=== PATIENT | male | born 1995 | race Caucasian/White ===

== ENCOUNTER 2019-07-13 05:29 | Day surgery (SDC) | payer BC, OTHER ==
[~2019-07-13 05:29] MED LIST: CEFAZOLIN SODIUM 2 GM in DEXTROSE 5%-WATER 100 ML IV PRN
[2019-07-13 05:53] LABS: APPEARANCE,URINE CLEAR; BILIRUBIN,URINE NEGATIVE (NEGATIVE); COLOR,URINE YELLOW; GLUCOSE, URINE NEGATIVE (NEGATIVE); KETONES,URINE NEGATIVE (NEGATIVE); LEUKOCYTE ESTERASE,URINE NEGATIVE (NEGATIVE); NITRITE,URINE NEGATIVE (NEGATIVE); PROTEIN,URINE NEGATIVE (NEGATIVE)
[2019-07-13 05:57] LABS: HEMATOCRIT 50.6 % (37.9-51.0); HEMOGLOBIN 17.4 g/dL (13.5-17.0); MEAN CORPUSCULAR HEMOGLOBIN 30.7 pg (27.0-33.4); MEAN CORPUSCULAR HGB CONC 34.4 g/dL (32.0-36.0); MEAN CORPUSCULAR VOLUME 90 fl (80-97); PLATELET COUNT 231 10^3/uL (150-450); RED BLOOD COUNT 5.66 10^6/uL (4.35-5.55); RED CELL DISTRIBUTION WIDTH 13.4 % (11.5-14.0); WHITE BLOOD COUNT 6.6 10^3/uL (4.0-10.5)
[2019-07-13 06:17] LABS: ANION GAP 13 (5-19); BLOOD UREA NITROGEN 12 mg/dL (7-20); CALCIUM 9.3 mg/dL (8.4-10.2); CARBON DIOXIDE 24 mmol/L (22-30); CHLORIDE 103 mmol/L (98-107); GLUCOSE 94 mg/dL (75-110)
[2019-07-13] MEDS ORDERED: LIDOCAINE 2% INJ-PF (20 MG/ML) 10 ML AMPUL ONE (06:38)
[2019-07-13] MEDS ORDERED: FENTANYL CITRATE INJ/PF 100 MCG/2 ML AMPUL ONE (06:38)
[2019-07-13] MEDS ORDERED: MIDAZOLAM 2 MG/2 ML INJ ONE (06:38)
[2019-07-13] MEDS ORDERED: HYDROMORPHONE HCL INJ/PF 2 MG/ML AMPULE ONE (06:38)
[2019-07-13] MEDS ORDERED: KETOROLAC TROMETHAMINE 60 MG/2 ML SDV ONE (06:38)
[2019-07-13] MEDS ORDERED: ONDANSETRON HCL INJ/PF 4 MG/2 ML SDV ONE (06:38)
[2019-07-13] MEDS ORDERED: PROPOFOL INJ 200 MG/20 ML VIAL IV ONE (06:39)
--- NOTE | 2019-07-13 07:13 | RADIOLOGY REPORT (SQ) ---
EXAM DESCRIPTION: XR CHEST 1 VIEW COMPLETED DATE/TME: 07/13/2019 00:00 CLINICAL HISTORY: pre-op. Subtalar fusion. COMPARISON: None. FINDINGS: Single frontal view of the chest. Cardiomediastinal silhouette: Normal size and contour. Lungs: No consolidation, pneumothorax, or pleural effusion. Bones: No acute osseous abnormality. Upper abdomen: No abnormality identified. IMPRESSION: 1. No acute pulmonary process identified.
--- NOTE | 2019-07-13 07:27 | EKG REPORT ---
SEVERITY:- ABNORMAL ECG - SINUS RHYTHM PROBABLE LEFT VENTRICULAR HYPERTROPHY : Confirmed by: Ramana Gill MD 13-Jul-2019 07:27:05
[2019-07-13] MEDS ORDERED: DEXMEDETOMIDINE INJ 80 MCG/20 ML VIAL IV ONE (07:51)
[2019-07-13] MEDS ORDERED: MEPERIDINE HCL/PF INJ 25 MG/1 ML DISP.SYRIN IV PRN (07:58)
[2019-07-13] MEDS ORDERED: ONDANSETRON HCL INJ/PF 4 MG/2 ML SDV IV PRN (07:58)
[2019-07-13] MEDS ORDERED: MORPHINE SULFATE 10 MG/ML INJ IV PRN (07:58)
[2019-07-13] MEDS ORDERED: DIPHENHYDRAMINE HCL 50 MG/ML VIAL IV PRN (07:58)
[2019-07-13] MEDS ORDERED: OXYCODONE-ACETAMINOPHEN 5-325 MG TABLET PO PRN ×2 (07:58)
[2019-07-13] MEDS ORDERED: FENTANYL CITRATE INJ/PF 100 MCG/2 ML AMPUL IV PRN ×3 (07:58)
[2019-07-13] MEDS ORDERED: PROMETHAZINE HCL INJ 25 MG/1 ML VIAL IV PRN ×2 (07:58)
[2019-07-13] MEDS ORDERED: MORPHINE SULFATE 10 MG/ML INJ ONE (08:28)
--- NOTE | 2019-07-13 08:28 | Discharge Summary ---
Discharge Summary (SDC) - Discharge Final Diagnosis: Left subtalar arthritis Date of Surgery: 07/13/19 Discharge Date: 07/13/19 Condition: Good Forms: ASU Anesthesia D/C Instruction, Discharge POC-Surgical Service Treatment or Instructions: Touchdown weightbearing restriction left lower extremity Referrals: RYAN THOMAS MD [ACTIVE STAFF] - Discharge Diet: Regular Respiratory Treatments at Home: Incentive Spirometer Discharge Activity: Balance Activity w/Rest, No tub bath Home Care Assistance: None Needed Report the Following to Your Physician Immediately: Shortness of Breath, Fever over 101 Degrees, Drainage-Foul Smelling
--- NOTE | 2019-07-13 08:31 | Operative Report ---
Operative Report DATE OF SURGERY: 07/13/19 PREOPERATIVE DIAGNOSIS: Left subtalar arthritis OPERATION: Left subtalar arthrodesis SURGEON: RYAN THOMAS ANESTHESIA: GA ESTIMATED BLOOD LOSS: Minimal PROCEDURE: With the patient supine in a sloppy lateral position on the operating table the left lower extremities prepped and draped in sterile fashion. The limb is elevated for exsanguination and tourniquet inflated to 280 torr. An oblique incision across the sinus Tarsi was performed and sharp dissection was carried incision down to the subtalar joint. The subtalar joint is visualized. Previo us bone fragments were excised using a rondure. The subtalar joint is exposed using a lamina senior clinical study manager. The subtalar joint is debrided using a bur down through the articular cartilage and the subchondral bone to bleeding cancellus bone. Subsequently 2 7.0 mm headless titanium Mariann screws were advanced through the calcaneus across the subtalar joint into the talus. Position is checked with fluoroscopy and felt to be adequate. Tourniquet is deflated. Hemostasis obtained electrocautery. The wound is irrigated with bulb lavage. It subsequently closed in layers using opted Vicryl followed by nylon. A sterile compressive dressing and posterior plaster splint were applied and patient is returned to the PACU in satisfactory condition.
[2019-07-13] MEDS: FENTANYL CITRATE INJ/PF 100 MCG/2 ML AMPUL ONE ×3 (08:40→08:55)
--- NOTE | 2019-07-13 09:27 | RADIOLOGY REPORT (SQ) ---
EXAM DESCRIPTION: ANKLE LEFT AP/LATERAL; NO CHG FLUORO COMPLETED DATE/TIME: 07/13/2019 9:08 am REASON FOR STUDY: LEFT SUBTALAR FUSION ASSISTED WITH FLUORO IN OR M79.672 PAIN IN LEFT FOOT COMPARISON: None. FLUOROSCOPY TIME: 0.6 minutes 2 digital fluoroscopic images saved to PACS. TECHNIQUE: Intra-operative images acquired during surgical procedure to evaluate progress. NUMBER OF IMAGES: 2 digital fluoroscopic images LIMITATIONS: None. FINDINGS: Intra procedural imaging and fluoro during subtalar fusion with 2 screws. Please see the operative report for further details IMPRESSION: IMAGE(S) OBTAINED DURING PROCEDURE. COMMENT: Quality ID [id number]: Final reports for procedures using fluoroscopy that document radiation exp osure indices, or exposure time and number of fluorographic images (if radiation exposure indices are not available) Please consult full operative report of the attending physician for description of the procedure. TECHNICAL DOCUMENTATION: JOB ID: [id number] 2010 [employer]- All Rights Reserved Reading location - IP/workstation name: [email or web address]
--- NOTE | 2019-07-13 09:27 | RADIOLOGY REPORT (SQ) ---
EXAM DESCRIPTION: ANKLE LEFT AP/LATERAL; NO CHG FLUORO COMPLETED DATE/TIME: 07/13/2019 9:08 am REASON FOR STUDY: LEFT SUBTALAR FUSION ASSISTED WITH FLUORO IN OR M79.672 PAIN IN LEFT FOOT COMPARISON: None. FLUOROSCOPY TIME: 0.6 minutes 2 digital fluoroscopic images saved to PACS. TECHNIQUE: Intra-operative images acquired during surgical procedure to evaluate progress. NUMBER OF IMAGES: 2 digital fluoroscopic images LIMITATIONS: None. FINDINGS: Intra procedural imaging and fluoro during subtalar fusion with 2 screws. Please see the operative report for further details IMPRESSION: IMAGE(S) OBTAINED DURING PROCEDURE. COMMENT: Quality ID [id number]: Final reports for procedures using fluoroscopy that document radiation exp osure indices, or exposure time and number of fluorographic images (if radiation exposure indices are not available) Please consult full operative report of the attending physician for description of the procedure. TECHNICAL DOCUMENTATION: JOB ID: [id number] 2010 [employer]- All Rights Reserved Reading location - IP/workstation name: [email or web address]
[2019-07-13] MEDS ORDERED: OXYCODONE-ACETAMINOPHEN 5-325 MG TABLET ONE (09:36)
[2019-07-13 11:19] VITALS: BP 139/79
[2019-07-13] MEDS ORDERED: SUCCINYLCHOLINE CHLORIDE INJ 200 MG/10 ML VIAL ONE (13:52)
[2019-07-13] MEDS ORDERED: DEXAMETHASONE SOD PHOSPHATE INJ 4 MG/1 ML VIAL ONE (13:52)
== END 2019-07-13 10:40 | disposition home or self-care (01) ==
LOC: OROUT 05:29
PROVIDERS: ATTEND Orthopaedic Surgery
DX: M19.072 Primary osteoarthritis, left ankle and foot (principal); M79.672 Pain in left foot; E66.9 Obesity, unspecified; Z68.37 Body mass index [BMI] 37.0-37.9, adult
CPT/HCPCS: 36415; 85027; 80048; 81001; 73600; 71045; 93005; 93010; 01480; 28725; J2250; J0690; J1100; J3010; J2270; J0330; J2405; J7060; J2704; J3490 ×2; J1170; J1885